=== PATIENT | female | born 1985 | race Asian ===

== ENCOUNTER 2017-04-29 00:05 | Inpatient (IN) | payer SELFPAY ==
[~2017-04-29] VITALS: Ht 157 cm; Wt 72.6 kg
[2017-04-29] MEDS ORDERED: METHYLERGONOVINE 0.2 MG/ML AMP IM PRN (00:25)
[2017-04-29] MEDS ORDERED: MISOPROSTOL 25 MCG TAB VG PRN (00:25)
[2017-04-29] MEDS ORDERED: NALBUPHINE HYDROCHLORIDE 10 MG/ML VIAL IVP PRN (00:25)
[2017-04-29] MEDS ORDERED: OXYTOCIN 10 UNITS/ML VIAL IM SCH (00:25)
[2017-04-29] MEDS ORDERED: IBUPROFEN 800 MG TAB PO PRN (00:25)
[2017-04-29] MEDS ORDERED: CARBOPROST 250 MCG/ML AMP IM PRN (00:25)
[2017-04-29] MEDS ORDERED: PROMETHAZINE 25 MG/ML VIAL IVP PRN (00:25)
[2017-04-29 00:54] LABS: BASOPHILS # (AUTO) 0.1 K/uL (0.00-0.22); BASOPHILS % (AUTO) 0.9 % (0.0-2.0); EOSINOPHILS # (AUTO) 0.1 K/uL (0-0.4); EOSINOPHILS % (AUTO) 0.8 % (0.0-4.0); HEMATOCRIT 38.5 % (36-48); HEMOGLOBIN 12.5 g/dL (12.0-16.0); LYMPHOCYTES # (AUTO) 2.3 K/uL (2.5-16.5); LYMPHOCYTES % (AUTO) 17.4 % (20.5-51.1); MEAN CORPUSCULAR HEMOGLOBIN 27 pg (27-31); MEAN CORPUSCULAR HGB CONC 33 g/dL (33-37); MEAN CORPUSCULAR VOLUME 84 fL (80-94); MONOCYTES # (AUTO) 1.7 K/uL (0.8-1.0); MONOCYTES % (AUTO) 12.8 % (1.7-9.3); NEUTROPHILS # (AUTO) 9.3 K/uL (1.8-7.7); NEUTROPHILS % (AUTO) 68.1 % (42.2-75.2); PLATELET COUNT (AUTO) 271 K/uL (140-450); RED BLOOD CELL COUNT(AUTO) 4.56 MIL/uL (4.20-5.40); RED CELL DISTRIBUTION WIDTH 13.2 % (11.6-13.7); WHITE BLOOD COUNT (AUTO) 13.5 K/uL (4.8-10.8)
[2017-04-29 02:07] LABS: APPEARANCE,URINE CLEAR (CLEAR); BILIRUBIN,URINE NEGATIVE (NEGATIVE); BLOOD, URINE TRACE-L (NEGATIVE); COLOR,URINE YELLOW (YELLOW); LEUKOCYTE ESTERASE ,URINE NEGATIVE (NEGATIVE); NITRITE, URINE NEGATIVE (NEGATIVE); PH,URINE 6.5 (5.0-9.0); UGLUCOSE 2+ (NEGATIVE)
[2017-04-29 02:30] LABS: RBC,URINE 0-5 (RARE) /HPF (0-5); WBC,URINE 0-5 (RARE) /HPF (0-5)
[2017-04-29] MEDS: LACTATED RINGERS 1,000 ML IV SCH ×3 (02:34→17:39)
[2017-04-29] MEDS ORDERED: MISOPROSTOL 25 MCG TAB ONE (02:35)
[2017-04-29] MEDS ORDERED: FERR325E14 PO (04:59)
[2017-04-29] MEDS ORDERED: PREN-546 PO (04:59)
[2017-04-29 05:03] VITALS: BP 123/87
[2017-04-29] MEDS ORDERED: AMPICILLIN 2,000 MG in NACL 0.9% 100 ML IV ONE (05:15)
[2017-04-29] MEDS ORDERED: OXYTOCIN 20 UNITS in LACTATED RINGERS 1,000 ML IV SCH (05:15)
[2017-04-29] MEDS ORDERED: AMPICILLIN 2,000 MG VIAL ONE (05:26)
[2017-04-29] MEDS ORDERED: OXYTOCIN 20 UNITS/LR PREMIX 1,000 ML IV ONE (07:18)
[2017-04-29] MEDS ORDERED: ROPIVACAINE 0.2%/NS PREMIX 250 ML EPI ONE (07:40)
[2017-04-29] MEDS ORDERED: AMPICILLIN 1,000 MG VIAL ONE ×4 (09:24→21:19)
[2017-04-29] MEDS: AMPICILLIN 1,000 MG in NACL 0.9% 50 ML IV SCH ×4 (09:25→21:25)
[2017-04-29 09:59] LABS: RAPID PLASMA REAGIN NON-REACTIVE (Non Reactiv)
[2017-04-29] MEDS ORDERED: ROPIVACAINE 0.2%/NS PREMIX 250 ML EPI SCH (10:50)
[2017-04-29] MEDS ORDERED: OXYTOCIN 10 UNITS/ML VIAL ONE (23:55)
[2017-04-30] MEDS ORDERED: AMPICILLIN 1,000 MG VIAL ONE (01:18)
[2017-04-30] MEDS ORDERED: TEMAZEPAM 15 MG CAP PO PRN (02:05)
[2017-04-30] MEDS ORDERED: OXYTOCIN 10 UNITS/ML VIAL IM PRN (02:05)
[2017-04-30] MEDS ORDERED: HYDROcodone/APAP 5/325 MG 1 TAB TAB PO PRN (02:05)
[2017-04-30] MEDS ORDERED: MEASLES, MUMPS, AND RUBELLA 1 VIAL SQVAC PRN (02:05)
[2017-04-30] MEDS ORDERED: METHYLERGONOVINE 0.2 MG/ML AMP IM PRN (02:05)
[2017-04-30] MEDS ORDERED: BENZOCAINE/MENTHOL 20%-0.5% 60 GM CAN TP PRN (02:05)
[2017-04-30] MEDS: IBUPROFEN 800 MG TAB PO PRN ×2 (04:00→12:26)
[2017-04-30] MEDS ORDERED: IBUPROFEN 800 MG TAB ONE (04:07)
[2017-04-30] MEDS: SHARK OIL/PHENYLEPHRINE 60 GM TUBE TP PRN (11:46)
[2017-04-30] MEDS: oxyCODONE/APAP 5/325 MG 1 TAB TAB PO PRN (20:35)
[2017-04-30] MEDS ORDERED: DOCUSATE SOD/SENNA 50/8.6 MG 1 TAB PO SCH (21:00)
[2017-04-30] MEDS ORDERED: ACETAMINOPHEN 325 MG TAB PO PRN (21:55)
[2017-04-30] MEDS ORDERED: INFLUENZA VIRUS VACCINE QUAD 0.5 ML SYR IMVAC SCH (23:40)
[2017-05-01] MEDS: oxyCODONE/APAP 5/325 MG 1 TAB TAB PO PRN ×2 (01:46→06:27)
[2017-05-01 06:12] LABS: HEMATOCRIT 25.7 % (36-48)
[2017-05-01 06:54] LABS: HEMOGLOBIN 8.4 g/dL (12.0-16.0)
[2017-05-01] MEDS: SHARK OIL/PHENYLEPHRINE 60 GM TUBE TP PRN ×2 (12:06→12:17)
[2017-05-01] MEDS: IBUPROFEN 800 MG TAB PO PRN ×2 (13:01→20:19)
== END 2017-05-01 22:10 | disposition home or self-care (01) | DRG 775 ==
LOC: MLD 00:05 → MFCC 04-30 08:30
PROVIDERS: ADMIT Obstetrics & Gynecology; ATTEND Obstetrics & Gynecology
PROC: 10E0XZZ Delivery of Products of Conception, External Approach (ICD-10-PCS; principal; 2017-04-30)
PROC: 10907ZC Drainage of Amniotic Fluid, Therapeutic from Products of Conception, Via Natural or Artificial Opening (ICD-10-PCS; 2017-04-30)
PROC: 0W8NXZZ Division of Female Perineum, External Approach (ICD-10-PCS; 2017-04-30)
PROC: 00HU33Z Insertion of Infusion Device into Spinal Canal, Percutaneous Approach (ICD-10-PCS; 2017-04-30)
PROC: 3E0R3BZ Introduction of Anesthetic Agent into Spinal Canal, Percutaneous Approach (ICD-10-PCS; 2017-04-30)
DX: O69.81X0 Labor and delivery complicated by cord around neck, without compression, not applicable or unspecified (principal); Z37.0 Single live birth; Z3A.39 39 weeks gestation of pregnancy
CPT/HCPCS: 36415; 51702; 81001; 85018; 85025; 86592; 86886; 86900; 86901; 87086; 90658; 90715; J0290; J2590; J2795; J7120